=== PATIENT | female | born 1955 | race African-American/Black ===

== ENCOUNTER 2016-06-29 08:52 | Emergency (ER) | payer OTHER ==
[~2016-06-29] VITALS: Ht 157.5 cm; Wt 113.6 kg
[~2016-06-29 08:52] MED LIST: AMLO10TA55 PO; ASPI-1093 PO; ATOR20TA86 PO; DIPH25 PO; GLIP5 PO; GLUC1CAP3 PO; LEVO100 PO; LOSA50TA37 PO; OMEG300C3 PO; OMEP20 PO
[2016-06-29] MEDS ORDERED: METO-325 PO (09:09)
[2016-06-29] MEDS ORDERED: PNV PO (09:09)
[2016-06-29] MEDS ORDERED: CHRO1TAB8 PEG (09:09)
[2016-06-29 09:17] LABS: GLUCOSE,POINT OF CARE 72 MG/DL (70-110)
[2016-06-29 11:31] VITALS: BP 162/93
== END 2016-06-29 11:31 | disposition home or self-care (01) ==
LOC: EMS 08:54
DX: S86.912A Strain of unspecified muscle(s) and tendon(s) at lower leg level, left leg, initial encounter (principal); E11.9 Type 2 diabetes mellitus without complications; I11.9 Hypertensive heart disease without heart failure; I25.2 Old myocardial infarction; E78.00 Pure hypercholesterolemia, unspecified; E03.9 Hypothyroidism, unspecified; Z79.82 Long term (current) use of aspirin; Z88.0 Allergy status to penicillin; Z88.2 Allergy status to sulfonamides; Z88.5 Allergy status to narcotic agent; Z88.6 Allergy status to analgesic agent; Z88.8 Allergy status to other drugs, medicaments and biological substances; X58.XXXA Exposure to other specified factors, initial encounter; Y93.89 Activity, other specified; Y92.89 Other specified places as the place of occurrence of the external cause; Y99.8 Other external cause status
CPT/HCPCS: 82962; 99284

== ENCOUNTER 2018-04-10 10:02 | Emergency (ER) | payer MEDICARE, OTHER ==
[~2018-04-10] VITALS: Ht 157.5 cm; Wt 90.9 kg
[~2018-04-10 10:02] MED LIST changes: -ASPI-1093 PO; +ASPI-1182 PO; +CHRO1TAB8 PEG; -LOSA50TA37 PO; +LOSA50TA64 PO; +METO-558 PO; +PNV PO
[2018-04-10 10:24] LABS: GLUCOSE,POINT OF CARE 67 MG/DL (70-110)
[2018-04-10 11:34] LABS: GLUCOSE,POINT OF CARE 145 MG/DL (70-110)
[2018-04-10] MEDS ORDERED: HYDROGEN PEROXIDE 118 ML SOLUTION ONE (12:01)
[2018-04-10 13:00] VITALS: BP 129/86
== END 2018-04-10 13:26 | disposition home or self-care (01) ==
LOC: EMS 10:03
DX: S00.452A Superficial foreign body of left ear, initial encounter (principal); E11.9 Type 2 diabetes mellitus without complications; I11.9 Hypertensive heart disease without heart failure; E78.00 Pure hypercholesterolemia, unspecified; E03.9 Hypothyroidism, unspecified; I25.2 Old myocardial infarction; G89.29 Other chronic pain; Z86.73 Personal history of transient ischemic attack (TIA), and cerebral infarction without residual deficits; Z98.51 Tubal ligation status; Z88.6 Allergy status to analgesic agent; Z88.5 Allergy status to narcotic agent; Z88.0 Allergy status to penicillin; Z88.2 Allergy status to sulfonamides; Z88.8 Allergy status to other drugs, medicaments and biological substances; Z79.82 Long term (current) use of aspirin; W45.8XXA Other foreign body or object entering through skin, initial encounter; Y93.89 Activity, other specified; Y92.89 Other specified places as the place of occurrence of the external cause; Y99.8 Other external cause status

== ENCOUNTER 2018-04-12 12:15 | Emergency (ER) | payer MEDICARE, OTHER ==
[~2018-04-12] VITALS: Ht 157.5 cm; Wt 90.9 kg
[2018-04-12 12:52] VITALS: BP 155/86
== END 2018-04-12 13:39 | disposition home or self-care (01) ==
LOC: EMS 12:16
DX: H60.92 Unspecified otitis externa, left ear (principal); E11.9 Type 2 diabetes mellitus without complications; E78.00 Pure hypercholesterolemia, unspecified; I25.2 Old myocardial infarction; Z86.73 Personal history of transient ischemic attack (TIA), and cerebral infarction without residual deficits; Z98.51 Tubal ligation status; Z88.2 Allergy status to sulfonamides; Z88.5 Allergy status to narcotic agent; Z88.6 Allergy status to analgesic agent; Z88.8 Allergy status to other drugs, medicaments and biological substances; Z79.899 Other long term (current) drug therapy; Z79.84 Long term (current) use of oral hypoglycemic drugs; Z79.82 Long term (current) use of aspirin